=== PATIENT | female | born 1970 | race Caucasian/White ===

== ENCOUNTER 2020-07-30 09:35 | Emergency (ER) | payer BC, OTHER ==
[2020-07-30 09:50] VITALS: BP 137/77; PULSE 101; TEMP 99; BMI 24.3
[2020-07-30] MEDS ORDERED: ACETAMINOPHEN 325 MG TABLET (FP) PO ONE (09:54)
[2020-07-30] MEDS ORDERED: ACETAMINOPHEN 325 MG TABLET (FP) ONE (10:04)
== END 2020-07-30 12:55 | disposition home or self-care (01) ==
LOC: FER 09:35
DX: S13.4XXA Sprain of ligaments of cervical spine, initial encounter (principal)
CPT/HCPCS: 72125-TC; 99284-25